=== PATIENT | male | born 1965 | race Two or more races ===

== ENCOUNTER 2017-07-29 17:51 | Emergency (ER) | payer MEDICAID ==
[~2017-07-29] VITALS: Ht 741.7 cm; Wt 99.8 kg
[2017-07-29] MEDS ORDERED: IV NS 1000 ML 1,000 ML IV ONE (18:15)
[2017-07-29 18:25] LABS: BASOPHILS % (AUTO) 0.5 % (0.0-2.0); EOSINOPHILS # (AUTO) 0.1 K/uL (0.0-0.7); EOSINOPHILS % (AUTO) 1.7 % (0.0-7.0); HEMATOCRIT 40.5 % (40-50); HEMOGLOBIN 13.4 G/DL (14.0-18.0); LYMPHOCYTES # (AUTO) 2.5 K/UL (0.8-4.8); LYMPHOCYTES % (AUTO) 38.5 % (20.5-51.5); MEAN CORPUSCULAR HGB CONC 33 g/dL (32.0-37.0); MEAN CORPUSCULAR VOLUME 93.6 FL (82.0-92.0); MONOCYTES # (AUTO) 0.3 K/UL (0.1-1.30); MONOCYTES % (AUTO) 5.1 % (0.0-11.0); NEUTROPHILS # (AUTO) 3.5 K/UL (1.8-8.9); NEUTROPHILS % (AUTO) 54.2 % (38.5-71.5); PLATELET COUNT (AUTO) 222 K/UL (150-450); RED BLOOD CELL COUNT(AUTO) 4.33 MIL/UL (4.7-6.1); WHITE BLOOD COUNT (AUTO) 6.4 K/UL (4.0-11.2)
--- NOTE | 2017-07-29 18:32 | NUR ---
PT REFUSED CT, DR CABRERA AWARE.
[2017-07-29 18:38] LABS: BILIRUBIN,TOTAL 0.2 mg/dL (0.2-1.0); CREATININE 0.7 mg/dL (0.6-1.3); POTASSIUM 3.7 mmol/L (3.5-5.1); TOTAL PROTEIN, SERUM 6.7 g/dL (6.4-8.2)
[2017-07-29] MEDS ORDERED: CARB200T PO (18:51)
[2017-07-29] MEDS ORDERED: TOPI100T PO (18:51)
--- NOTE | 2017-07-29 20:26 | NUR ---
Patient discharged to home in stable conditon. Written and verbal after care instructions given. Patient verbalizes understanding of instructions.
[2017-07-29 20:27] VITALS: BP 108/63
== END 2017-07-29 20:27 | disposition home or self-care (01) ==
LOC: ER 17:53
DX: G40.909 Epilepsy, unspecified, not intractable, without status epilepticus (principal)
CPT/HCPCS: 36415; 71010; 80053; 80156; 82550; 84484; 85025; 93005; 96360; 99285; A4663; 70030-TC; J7030